=== PATIENT | male | born 1990 | race Caucasian/White ===

== ENCOUNTER 2019-05-07 11:35 | Inpatient (IN) | payer OTHER ==
--- NOTE | 2019-05-07 11:56 | PDOC ---
History of Present Illness <EverardoTrae - Last Filed: 05/07/19 16:46> - History of Present Illness Initial Comments: HPI: 28yo M with PMH of depression and asthma presenting sent by urgent care for evaluation of R. flank pain. Patient states the pain started this morning, describes it as "sharp," and rated 6-8/10. Patient has never had pain like this before. Took some gas-ex at home without relief of pain. Went to an urgent care and was given a shot of toradol. Pain is now improved, rated 1/10. Patient denies dysuria. Paperwork regarding a urine sample checked at the urgent care showed 2+ blood but no other abnormalities. Denies penile discharge or genital lesions. No fevers or chills. PCP: does not remember the name, someone affiliated with [facility] ROS: Constitutional: no fever, no chills HEENT: no throat pain, no dysphagia Cardiovascular: no chest pain, no palpitations Respiratory: no cough, no shortness of breath Gastrointestinal: no abdominal pain, no nausea Genitourinary: no dysuria, no hematuria Musculoskeletal: no myalgia, no arthralgia Skin: no rash, no itching Neurologic: no headache, no weakness Psych: no agitation, no anxiety PE: General: Awake, alert, and fully oriented, in no acute distress Head: No signs of trauma Eyes: EOMI, sclera anicteric ENT: Moist mucus membranes Neck: Normal ROM, supple Lungs: Lungs clear, Normal breath sounds Cardio: Regular rhythm, S1 and S2 present Abdomen: Soft, nontender. No guarding, no rebound, no masses. Mild CVA tenderness on right. No CVA tenderness on left. Extremities: Normal range of motion, Distal pulses present SKIN: Warm, Dry, normal turgor Neurologic: Cranial nerves II through XII grossly intact. Normal speech ED Course/MDM: DDX including but not limited to nephrolithiasis, UTI, pyelonephritis, MSK UA, UCx Patient declined pain medication Will reassess 05/07/19 11:56 UA with 1+ hematuria, no signs of infection Patient with 5/10 pain that has returned Trouble finding a comfortable position Suspicion for renal colic CT spiral ordered to assess for nephrolithiasis Labs 05/07/19 13:50 Patient with some nausea due to blood draw; patient not nauseous right now 05/07/19 14:21 CBC WBC 18.9 K/mm3 (4.0-10.8) H 05/07/19 14:10 RBC 5.67 M/mm3 (4.00-5.60) H 05/07/19 14:10 Hgb 16.9 GM/dl (11.7-16.9) 05/07/19 14:10 Hct 49.9 % (35.4-49) H 05/07/19 14:10 MCV 87.9 fl (80-96) 05/07/19 14:10 MCH 29.9 pg (25.7-33.7) 05/07/19 14:10 MCHC 34.0 g/dl (32.0-35.9) 05/07/19 14:10 RDW 11.9 % (11.9-15.9) 05/07/19 14:10 Plt Count 273 K/MM3 (134-434) 05/07/19 14:10 MPV 9.0 fl (7.5-11.1) 05/07/19 14:10 Absolute Neuts (auto) 14.8 K/mm3 05/07/19 14:10 Neutrophils % 78.6 % (42.8-82.8) 05/07/19 14:10 Lymphocytes % 16.0 % (8-40) 05/07/19 14:10 Monocytes % 4.7 % (3.8-10.2) 05/07/19 14:10 Eosinophils % 0.3 % (0-4.5) 05/07/19 14:10 Basophils % 0.4 % (0-2.0) 05/07/19 14:10 Leukocytosis CMP Sodium 136 mmol/L (136-145) 05/07/19 14:10 Potassium 3.8 mmol/L (3.5-5.1) 05/07/19 14:10 Chloride 104 mmol/L (98-107) 05/07/19 14:10 Carbon Dioxide 22 mmol/L (21-32) 05/07/19 14:10 Anion Gap 10 MMOL/L (8-16) 05/07/19 14:10 BUN 21.0 mg/dl (7-18) H 05/07/19 14:10 Creatinine 1.3 mg/dl (0.55-1.3) 05/07/19 14:10 Est GFR (CKD-EPI)AfAm 85.46 05/07/19 14:10 Est GFR (CKD-EPI)NonAf 73.73 05/07/19 14:10 Random Glucose 96 mg/dl (74-106) 05/07/19 14:10 Calcium 10.1 mg/dl (8.5-10) H 05/07/19 14:10 Total Bilirubin 1.4 mg/dl (0.2-1) H 05/07/19 14:10 AST 72 U/L (15-37) H 05/07/19 14:10 ALT 172 U/L (13-61) H 05/07/19 14:10 Alkaline Phosphatase 46 U/L (45-117) 05/07/19 14:10 Total Protein 7.7 g/dl (6.4-8.2) 05/07/19 14:10 Albumin 4.8 g/dl (3.4-5.0) 05/07/19 14:10 Electrolytes unremarkable Normal Cr Transaminitis present Pending CT report 05/07/19 15:49 CTAP: " EXAM#: TYPE/EXAM: RESULT: [id number] CT/SPIRAL- RENAL-STONE CT Right flank pain. CT scan of the abdomen pelvis without oral and intravenous contrast Coronal and sagittal reformatted images were obtained Comparison: None available The visualized lung base appears unremarkable and the heart is within normal limits in size. The liver is within normal limits in size with suggestion of mild decreased attenuation, rule out a fatty liver. The spleen is within normal limits in size and attenuation measuring 11.8 cm in AP dimension. Evaluation of the pancreas, gallbladder and both adrenal glands appear unremarkable. The left kidney is within normal limits in size with questionable punctate nonobstructing stone on axial image 56. Right kidney is within normal limits in size with mild stranding of the surrounding fat and a mild to moderate hydronephrosis. There is a stone at the right ureteropelvic junction measuring 8 x 7 x 9 mm in transverse, AP and craniocaudal dimension with a thickening of the surrounding ureteral wall and mild stranding. The rest of the right ureter is not dilated pain Partially distended urinary bladder without wall thickening. Moderately distended stomach without wall thickening. There is no evidence of small bowel obstruction. Normal-appearing terminal ileum and appendix. Normal stool burden the colon without wall thickening. Normal size prostate gland. Perirectal and pericecal fat are clear. No free air , free fluid or enlarged lymph nodes are identified Visualized osseous structures appear intact. IMPRESSION: 8 x 7 x 9 mm obstructing stone at the right ureteropelvic junction resulting in mild to moderate right renal hydronephrosis and stranding of the perinephric fat. Possible punctate nonobstructing left mid to lower renal stone. Questionable mild fatty infiltration of the liver. Please correlate with liver enzymes " 05/07/19 16:07 Dr. Mcgee discussed case with Dr. Valentino, urologist. Given possibility of urologic procedure tonight, patient to be transferred to [facility] Stone removal procedure needed requiring inpatient admission Dr. Mcgee discussed case with [employer] Carole Weir who accepted patient for admission under Dr. De La Cruz 05/07/19 18:10 <Aniya Romero - Last Filed: 05/07/19 20:43> - General Chief Complaint: Pain Stated Complaint: RIGHT WILBERTO AND LOWER ABDOMINAL PAIN WAS SEEN Time Seen by Provider: 05/07/19 11:55 Past History <Trae Mcgee - Last Filed: 05/07/19 16:46> <Aniya Romero - Last Filed: 05/07/19 20:43> - Past Medical History Allergies/Adverse Reactions: Allergies Allergy/AdvReac Type Severity Reaction Status Date / Time No Known Allergies Allergy Unverified 05/07/19 11:51 Home Medications: Ambulatory Orders Fluoxetine HCl [Prozac] 40 mg PO DAILY 05/07/19 *Physical Exam - Vital Signs Last Vital Signs Temp Pulse Resp BP Pulse Ox 99.6 F 73 18 144/86 99 05/07/19 11:50 05/07/19 11:50 05/07/19 11:50 05/07/19 11:50 05/07/19 11:50 <Trae Mcgee - Last Filed: 05/07/19 16:46> ED Treatment Course - LABORATORY CBC & Chemistry Diagram: 05/07/19 14:10 05/07/19 14:10 - ADDITIONAL ORDERS Additional order review: Laboratory Results 05/07/19 05/07/19 14:10 12:05 Sodium 136 Potassium 3.8 Chloride 104 Carbon Dioxide 22 Anion Gap 10 BUN 21.0 H Creatinine 1.3 Est GFR (CKD-EPI)AfAm 85.46 Est GFR (CKD-EPI)NonAf 73.73 Random Glucose 96 Calcium 10.1 H Total Bilirubin 1.4 H AST 72 H ALT 172 H Alkaline Phosphatase 46 Total Protein 7.7 Albumin 4.8 Urine Color Yellow Urine Appearance Clear Urine pH 7.0 Urine Protein Trace Urine Glucose (UA) Negative Urine Ketones Trace Urine Blood 1+ H Urine Nitrite Negative Urine Bilirubin Negative Urine Urobilinogen 0.2 Ur Leukocyte Esterase Negative Urine RBC 5-10 Urine WBC 0-2 Ur Transition Epith Cell Rare Calcium Oxalate Crystal Few Urine Bacteria Few 05/07/19 14:10 RBC 5.67 H MCV 87.9 MCHC 34.0 RDW 11.9 MPV 9.0 Neutrophils % 78.6 Lymphocytes % 16.0 Monocytes % 4.7 Eosinophils % 0.3 Basophils % 0.4 - Medications Given in the ED: ED Medications Discontinued Medications Generic Name Dose Route Start Last Admin Trade Name Yao PRN Reason Stop Dose Admin Sodium Chloride 1,000 mls @ 1,000 mls/hr 05/07/19 13:49 05/07/19 14:20 Normal Saline - IV 05/07/19 14:48 1,000 mls/hr ASDIR STA Administration Tamsulosin HCl 0.4 mg 05/07/19 13:49 05/07/19 14:20 Flomax - PO 05/07/19 13:50 0.4 mg ONCE ONE Administration <Trae Mcgee - Last Filed: 05/07/19 16:46> - LABORATORY CBC & Chemistry Diagram: 05/07/19 14:10 05/07/19 14:10 <Aniya Romero - Last Filed: 05/07/19 20:43> Discharge - Discharge Information Problems reviewed: Yes - Admission Yes <Trae Mcgee - Last Filed: 05/07/19 16:46> - Discharge Information Problems reviewed: Yes - Admission Yes <Aniya Romero - Last Filed: 05/07/19 20:43> - Discharge Information Clinical Impression/Diagnosis: Hydronephrosis with renal calculous obstruction Condition: Guarded - Patient Discharge Instructions Patient Printed Discharge Instructions: DI for Flank Pain Additional Instructions: You came into the emergency department with flank pain. Eat and hydrate throughout the day to prevent dehydration and low blood sugar levels. Follow-up with your primary care provider within 72 hours to discuss this ED visit and to further evaluate your symptoms. Call and make an appointment tomorrow morning. Your workup is not complete until you do so. Immediate medical attention is required if you have: you become lightheaded, develop chest pain or shortness of breath, are unable to urinate, start passing dark red urine or clots, develop any fevers or chills, or any other new or concerning symptoms. If you think you are having an emergency, call for emergency medical services or present to the emergency department right away.
[2019-05-07 13:29] LABS: CALCIUM OXALATE CRYSTALS FEW /hpf (NONE SEEN); EPITHELIAL CELLS RARE /hpf
[2019-05-07] MEDS ORDERED: TAMSULOSIN HCL 0.4 MG CAP PO ONE (13:49)
[2019-05-07] MEDS ORDERED: SODIUM CHLORIDE 1,000 ML IV STA ×2 (13:49→19:04)
[2019-05-07] MEDS ORDERED: ONDANSETRON *ODT* 4 MG TABLET ONE (14:17)
[2019-05-07] MEDS ORDERED: ONDANSETRON 4 MG/2 ML VIAL ONE (14:18)
[2019-05-07 14:34] LABS: BASO % 0.4 % (0-2.0); EOS % 0.3 % (0-4.5)
[2019-05-07 14:42] LABS: ALBUMIN 4.8 g/dl (3.4-5.0); BILIRUBIN,TOTAL 1.4 mg/dl (0.2-1); CALCIUM 10.1 mg/dl (8.5-10); CREATININE 1.3 mg/dl (0.55-1.3); POTASSIUM 3.8 mmol/L (3.5-5.1); TOT PROT 7.7 g/dl (6.4-8.2)
[2019-05-07 14:49] LABS: HEMATOCRIT 49.9 % (35.4-49); HEMOGLOBIN 16.9 GM/dl (11.7-16.9); MCH 29.9 pg (25.7-33.7); MEAN CELL VOLUME 87.9 fl (80-96); MONO % 4.7 % (3.8-10.2); NEUT % 78.6 % (42.8-82.8); PLATELET COUNT 273 K/MM3 (134-434); RBC 5.67 M/mm3 (4.00-5.60); RDW 11.9 % (11.9-15.9); WHITE BLOOD COUNT 18.9 K/mm3 (4.0-10.8)
--- NOTE | 2019-05-07 16:16 | PDOC ---
Attending Attestation - Resident Resident Name: Aniya Romero - ED Attending Attestation I have performed the following: I have examined & evaluated the patient, The case was reviewed & discussed with the resident, I agree w/resident's findings & plan, Exceptions are as noted - HPI HPI: 05/07/19 16:17 Right flank pain since this morning. Pain radiates to the right mid abdomen. No urinary symptoms. Mild nausea, no vomiting or diarrhea, no fever or chills. - Physicial Exam PE: 05/07/19 16:18 Physical exam: Afebrile, vital signs normal No pallor or icterus. ENT clear Neck supple without bruit mass or nodes Chest clear CV regular without murmur rub or gallop Abdomen nondistended. Bowel sounds normal. Soft without mass tenderness organomegaly. Mild CVAT on the right. Neurological intact Skin clear, no rash, adequate turgor and wet mucous membranes exam normal 05/07/19 16:19 Urinalysis shows blood, no white cells, nitrite, or leukocyte esterase - Medical Decision Making 05/07/19 16:19 Assessment: Probable proximal ureteral stone. Other possibilities musculoskeletal pain, gastroenteritis, cholecystitis or hepatitis, peptic ulcer disease Plan: CT and further medical management depending on results. 05/07/19 16:20 CT reveals a large 9 mm obstructing stone in the proximal ureter, with hydronephrosis and hydroureter, as well as a more distal nonobstructing stone. White blood count is 18.9, suspicious for infection Considerable risk for sepsis, admit for intravenous antibiotic and surgical consultation. Spoke to Dr. Valentino, urology consultation. He considers semi-emergent stent to be necessary. We will perform blood cultures, begin intravenous antibiotics , and transfer the patient to [facility] for semi-emergent intervention.
--- NOTE | 2019-05-07 17:18 | HP ---
CHIEF COMPLAINT: Right flank pain PCP: Can't remember; someone at [facility] HISTORY OF PRESENT ILLNESS: 28 year-old male with a PMH significant for asthma and depression. Patient reports right flank pain which awoke him from sleep at 5am this morning. The pain is sharp, 6-8/10. He went to an urgent care and was given a shot of toradol. Pain is now improved, rated 1/10. Patient denies fever, sweats, chills , nausea, vomiting, diarrhea. Had a normal BM today. ER course was notable for: (1) WBC 18.9k, T 101 rectal (2) Hematuria 5-10 RBCs (3) CTAP: [id number] obstructing stone right UPJ-->mild to moderate right renal hydronephrosis and stranding of perinephric fat Recent Travel: No PAST MEDICAL HISTORY: Asthma Depression PAST SURGICAL HISTORY: Left knee meniscus repair Social History: works at [employer]; lives in [place] with parents, single Smoking: occasionally Alcohol: no Drugs: marijuna occasionally Allergies No Known Allergies Allergy (Unverified 05/07/19 11:51) HOME MEDICATIONS: Home Medications Medication Instructions Recorded Fluoxetine HCl [Prozac] 40 mg PO DAILY 05/07/19 REVIEW OF SYSTEMS CONSTITUTIONAL: Absent: fever, chills, diaphoresis, generalized weakness, malaise, loss of appetite, weight change HEENT: Absent: rhinorrhea, nasal congestion, throat pain, throat swelling, difficulty swallowing, mouth swelling, ear pain, eye pain, visual changes CARDIOVASCULAR: Absent: chest pain, syncope, palpitations, irregular heart rate, lightheadedness , peripheral edema RESPIRATORY: Absent: cough, shortness of breath, dyspnea with exertion, orthopnea, wheezing, stridor, hemoptysis GASTROINTESTINAL: Absent: abdominal pain, abdominal distension, nausea, vomiting, diarrhea, constipation, melena, hematochezia GENITOURINARY: +right flank pain Absent: dysuria, frequency, urgency, hesitancy, hematuria, flank pain, genital pain MUSCULOSKELETAL: Absent: myalgia, arthralgia, joint swelling, back pain, neck pain SKIN: Absent: rash, itching, pallor HEMATOLOGIC/IMMUNOLOGIC: Absent: easy bleeding, easy bruising, lymphadenopathy, frequent infections ENDOCRINE: Absent: unexplained weight gain, unexplained weight loss, heat intolerance, cold intolerance NEUROLOGIC: Absent: headache, focal weakness or paresthesias, dizziness, unsteady gait, seizure, mental status changes, bladder or bowel incontinence PSYCHIATRIC: Absent: anxiety, depression, suicidal or homicidal ideation, hallucinations. PHYSICAL EXAMINATION Vital Signs - 24 hr 05/07/19 11:50 Temperature 99.6 F Pulse Rate 73 Respiratory 18 Rate Blood Pressure 144/86 O2 Sat by Pulse 99 Oximetry (%) GENERAL: Awake, alert, and fully oriented, in no acute distress. Pale. HEAD: Normal with no signs of trauma. EYES: Pupils equal, round and reactive to light, extraocular movements intact, sclera anicteric, conjunctiva clear. EARS, NOSE, THROAT: Ears normal, nares patent, oropharynx clear without exudates. Dry mucous membranes. NECK: Normal range of motion, supple without lymphadenopathy, JVD, or masses. LUNGS: Breath sounds equal, clear to auscultation bilaterally. No wheezes, and no crackles. No accessory muscle use. HEART: Regular rate and rhythm, normal S1 and S2 without murmur, rub or gallop. ABDOMEN: Soft, protubrant, right flank tenderness on deep palpation MUSCULOSKELETAL: Normal range of motion at all joints. No bony deformities or tenderness. UPPER EXTREMITIES: 2+ pulses, warm, well-perfused. No cyanosis. No clubbing. No peripheral edema.Mild right CVA tenderness. LOWER EXTREMITIES: 2+ pulses, warm, well-perfused. No calf tenderness. No peripheral edema. NEUROLOGICAL: Cranial nerves II-XII intact. Normal speech. . SKIN: Warm, dry, normal turgor Laboratory Results - last 24 hr 05/07/19 05/07/19 05/07/19 12:05 14:10 14:10 WBC 18.9 H RBC 5.67 H Hgb 16.9 Hct 49.9 H MCV 87.9 MCH 29.9 MCHC 34.0 RDW 11.9 Plt Count 273 MPV 9.0 Absolute Neuts (auto) 14.8 Neutrophils % 78.6 Lymphocytes % 16.0 Monocytes % 4.7 Eosinophils % 0.3 Basophils % 0.4 Sodium 136 Potassium 3.8 Chloride 104 Carbon Dioxide 22 Anion Gap 10 BUN 21.0 H Creatinine 1.3 Est GFR (CKD-EPI)AfAm 85.46 Est GFR (CKD-EPI)NonAf 73.73 Random Glucose 96 Calcium 10.1 H Total Bilirubin 1.4 H AST 72 H ALT 172 H Alkaline Phosphatase 46 Total Protein 7.7 Albumin 4.8 Urine Color Yellow Urine Appearance Clear Urine pH 7.0 Urine Protein Trace Urine Glucose (UA) Negative Urine Ketones Trace Urine Blood 1+ H Urine Nitrite Negative Urine Bilirubin Negative Urine Urobilinogen 0.2 Ur Leukocyte Esterase Negative Urine RBC 5-10 Urine WBC 0-2 Ur Transition Epith Cell Rare Calcium Oxalate Crystal Few Urine Bacteria Few ASSESSMENT/PLAN: 28 year-old male with a PMH significant for asthma and depression. Admitted for a right ureteral obstructing stone and hydronephrosis. Sepsis secondary to right ureteral obstructing stone Right-side hydronephrosis --WBC 18.9k, T 101 rectal, lactic acid pending --CT: [id number] obstructing stone right UPJ-->mild to moderate right renal hydronephrosis and stranding of perinephric fat --Cr 1.3 on admission, monitor renal function closely --discussed with Dr. Teresa, transfer to [facility], may need procedure tonight --NS x 1L in ED; give another 1L now, then hourly Depression --continue Prozac Asthma --stable, not on regular meds FEN Fluids: LR@125mL/hr Electrolytes: replete as indicated Nutrition: NPO DVT prophylaxis: SCDs Dispo: Dr. Westfall's answering service advised 7:20pm patient septic, WBC 19k, fever 101; has room 824B at [facility], awaiting transport. Visit type - Emergency Visit Emergency Visit: Yes Care time: The patient presented to the Emergency Department on the above date and was hospitalized for further evaluation of their emergent condition. - New Patient This patient is new to me today: Yes Date on this admission: 05/07/19 - Critical Care Critical Care patient: Yes Total Critical Care Time (in minutes): 45 Critical Care Statement: The care of this patient involved high complexity decision making to prevent further life threatening deterioration of the patient 's condition and/or to evaluate & treat vital organ system(s) failure or risk of failure.
[2019-05-07] MEDS ORDERED: CEFTRIAXONE 1,000 MG in DEXTROSE 5%-WATER - 50 ML IVPB ONE (17:25)
[2019-05-07] MEDS ORDERED: cefTRIAXone SODIUM 1 GM VIAL ONE (17:31)
[2019-05-07] MEDS: LACTATED RINGERS SOLUTION 1,000 ML/1,000 ML INFUS.BAG IV SCH (18:15)
[2019-05-07] MEDS ORDERED: PIPERACILLIN/TAZOBACTAM 3.375 GM VIAL IVPB ONE (19:11)
[2019-05-07] MEDS ORDERED: PIPERACILLIN/TAZOB 3.375 GM 3.375 GM in DEXTROSE 5%-WATER - 50 ML IVPB SCH (19:15)
[2019-05-07] MEDS: PIPERACILLIN/TAZOB 3.375 GM 3.375 GM in DEXTROSE 5%-WATER - 50 ML IVPB SCH (19:25)
[2019-05-07] MEDS ORDERED: ACETAMINOPHEN INJECTION 100 ML IVPB ONE (19:32)
[2019-05-07] MEDS: ACETAMINOPHEN 1000 MG/100 ML VIAL (NON FORMULARY) IVPB SCH (19:50)
[2019-05-07] MEDS: KETOROLAC TROMETHAMINE 15 MG/ML VIAL IVPUSH PRN (23:01)
[2019-05-08 00:17] VITALS: BMI 31.4
[2019-05-08] MEDS ORDERED: PIPERACILLIN/TAZOBACTAM 3.375 GM VIAL IVPB ONE ×2 (01:27→09:50)
[2019-05-08] MEDS ORDERED: DEXTROSE 5%-WATER - 50 ML IVPB ONE ×2 (01:28→09:51)
[2019-05-08] MEDS: PIPERACILLIN/TAZOB 3.375 GM 3.375 GM in DEXTROSE 5%-WATER - 50 ML IVPB SCH ×2 (01:40→10:01)
[2019-05-08] MEDS: ACETAMINOPHEN 1000 MG/100 ML VIAL (NON FORMULARY) IVPB SCH ×3 (01:40→14:46)
[2019-05-08 08:51] LABS: BASO % 0.5 % (0-2.0); EOS % 1.1 % (0-4.5); HEMATOCRIT 40.4 % (35.4-49); HEMOGLOBIN 14.2 GM/dL (11.7-16.9); LYMPH % 26.4 % (8-40); MCH 30.1 pg (25.7-33.7); MCHC 35.1 g/dl (32.0-35.9); MEAN CELL VOLUME 85.8 fl (80-96); MEAN PLT VOLUME 8.2 fl (7.5-11.1); MONO % 7.8 % (3.8-10.2); NEUT % 64.2 % (42.8-82.8); PLATELET COUNT 201 K/MM3 (134-434); RDW 12.9 % (11.9-15.9); WHITE BLOOD COUNT 8.1 K/mm3 (4.0-10.0)
[2019-05-08 09:28] LABS: ALBUMIN 3.7 g/dl (3.4-5.0); BLOOD UREA NITROGEN 14.3 mg/dL (7-18); CALCIUM 8.5 mg/dL (8.5-10.1); CREATININE 1.1 mg/dL (0.55-1.3); MAGNESIUM 1.9 mg/dL (1.8-2.4); POTASSIUM 3.4 mmol/L (3.5-5.1); TOT PROT 6.4 g/dl (6.4-8.2)
[2019-05-08 09:30] LABS: INR 1.14 (0.83-1.09); PROTHROMBIN TIME (PATIENT) 13.5 SEC (9.7-13.0)
[2019-05-08] MEDS: KETOROLAC TROMETHAMINE 15 MG/ML VIAL IVPUSH PRN ×2 (10:01→18:57)
[2019-05-08] MEDS: LACTATED RINGERS SOLUTION 1,000 ML/1,000 ML INFUS.BAG IV SCH ×2 (10:02→18:57)
[2019-05-08] MEDS: FLUoxetine HCL 20 MG CAPSULE PO SCH (10:05)
--- NOTE | 2019-05-08 11:13 | PN ---
Physical Exam: SUBJECTIVE: Patient seen and examined compfrtable in bed , denies any fever , chills , hematuria , or chest pain , no N/V reported OBJECTIVE: Vital Signs Period Temp Pulse Resp BP Sys/Richards Pulse Ox Last 24 Hr 98.1 F-101.3 F 73-106 16-20 124-150/67-108 96-199 GENERAL: AAOx3 in NAD , pale HEAD: NC/AT EYES: EOMI, Conjunctiva clear, sclera anicteric ENT: moist mucous membrane NECK: Supple, no JVD LUNGS: CTA B/L, no crackles no wheezing no accessory muscle use. HEART: RRR, NSR, normal s1, s2, murmur no M/R/G ABDOMEN: Soft, ND, NT, +BS 4 Q, right CVA Tenderness LOWER EXTREMITIES: no edema, +2DP pulse, NEUROLOGICAL: No focal deficit. Normal speech. gait not observed. PSYCHIATRIC: Cooperative. Good eye contact. Appropriate mood and affect. SKIN: Warm, dry, Laboratory Results - last 24 hr 05/07/19 05/07/19 05/07/19 12:05 14:10 14:10 WBC 18.9 H RBC 5.67 H Hgb 16.9 Hct 49.9 H MCV 87.9 MCH 29.9 MCHC 34.0 RDW 11.9 Plt Count 273 MPV 9.0 Absolute Neuts (auto) 14.8 Neutrophils % 78.6 Lymphocytes % 16.0 Monocytes % 4.7 Eosinophils % 0.3 Basophils % 0.4 Nucleated RBC % PT with INR INR PTT (Actin FS) Sodium 136 Potassium 3.8 Chloride 104 Carbon Dioxide 22 Anion Gap 10 BUN 21.0 H Creatinine 1.3 Est GFR (CKD-EPI)AfAm 85.46 Est GFR (CKD-EPI)NonAf 73.73 Random Glucose 96 Lactic Acid Calcium 10.1 H Phosphorus Magnesium Total Bilirubin 1.4 H AST 72 H ALT 172 H Alkaline Phosphatase 46 Total Protein 7.7 Albumin 4.8 Urine Color Yellow Urine Appearance Clear Urine pH 7.0 Urine Protein Trace Urine Glucose (UA) Negative Urine Ketones Trace Urine Blood 1+ H Urine Nitrite Negative Urine Bilirubin Negative Urine Urobilinogen 0.2 Ur Leukocyte Esterase Negative Urine RBC 5-10 Urine WBC 0-2 Ur Transition Epith Cell Rare Calcium Oxalate Crystal Few Urine Bacteria Few 05/07/19 05/08/19 05/08/19 17:00 06:00 07:30 WBC 8.1 RBC 4.70 Hgb 14.2 Hct 40.4 MCV 85.8 MCH 30.1 MCHC 35.1 RDW 12.9 Plt Count 201 MPV 8.2 Absolute Neuts (auto) 5.2 Neutrophils % 64.2 Lymphocytes % 26.4 Monocytes % 7.8 Eosinophils % 1.1 Basophils % 0.5 Nucleated RBC % 0 PT with INR INR PTT (Actin FS) Sodium 139 Potassium 3.4 L Chloride 108 H Carbon Dioxide 24 Anion Gap 8 BUN 14.3 Creatinine 1.1 Est GFR (CKD-EPI)AfAm 104.59 Est GFR (CKD-EPI)NonAf 90.24 Random Glucose 102 Lactic Acid 1.2 Calcium 8.5 Phosphorus 3.0 Magnesium 1.9 Total Bilirubin 2.0 H AST 34 ALT 131 H Alkaline Phosphatase 47 Total Protein 6.4 Albumin 3.7 Urine Color Urine Appearance Urine pH Urine Protein Urine Glucose (UA) Urine Ketones Urine Blood Urine Nitrite Urine Bilirubin Urine Urobilinogen Ur Leukocyte Esterase Urine RBC Urine WBC Ur Transition Epith Cell Calcium Oxalate Crystal Urine Bacteria 05/08/19 07:30 WBC RBC Hgb Hct MCV MCH MCHC RDW Plt Count MPV Absolute Neuts (auto) Neutrophils % Lymphocytes % Monocytes % Eosinophils % Basophils % Nucleated RBC % PT with INR 13.50 H INR 1.14 H PTT (Actin FS) 32.0 Sodium Potassium Chloride Carbon Dioxide Anion Gap BUN Creatinine Est GFR (CKD-EPI)AfAm Est GFR (CKD-EPI)NonAf Random Glucose Lactic Acid Calcium Phosphorus Magnesium Total Bilirubin AST ALT Alkaline Phosphatase Total Protein Albumin Urine Color Urine Appearance Urine pH Urine Protein Urine Glucose (UA) Urine Ketones Urine Blood Urine Nitrite Urine Bilirubin Urine Urobilinogen Ur Leukocyte Esterase Urine RBC Urine WBC Ur Transition Epith Cell Calcium Oxalate Crystal Urine Bacteria Active Medications Generic Name Dose Route Start Last Admin Trade Name Freq PRN Reason Stop Dose Admin Acetaminophen 1,000 mg 05/07/19 19:30 05/08/19 07:54 Ofirmev Injection - IVPB 05/08/19 13:31 1,000 mg Q6H UMU Administration Fluoxetine HCl 40 mg 05/08/19 10:00 05/08/19 10:05 Prozac - PO 40 mg DAILY UMU Administration Lactated Ringer's 1,000 ml in 1,000 mls @ 125 mls/hr 05/07/19 18:00 05/08/19 10:02 Lactated Ringers Solution IV 125 mls/hr ASDIR UMU Administration Piperacillin Sod/Tazobactam 50 mls @ 100 mls/hr 05/07/19 19:15 Sod 3.375 gm/ Dextrose IVPB Q8H-IV UMU Protocol Ketorolac Tromethamine 15 mg 05/07/19 17:30 05/08/19 10:01 Toradol Injection - IVPUSH 05/12/19 17:29 15 mg Q6H PRN Administration PAIN LEVEL 6-10 CBC, BMP 05/08/19 07:30 05/08/19 06:00 ASSESSMENT/PLAN: 28 year-old male with a PMH significant for asthma and depression. Admitted for a right ureteral obstructing stone and hydronephrosis. #Sepsis secondary to right ureteral obstructing stone #Right-side hydronephrosis * WBC 18.9k, T 101 rectal, lactic acid pending * CT: [id number] obstructing stone right UPJ-->mild to moderate right renal hydronephrosis and stranding of perinephric fat * Cr 1.3 on admission, monitor renal function closely * Dr. Teresa, cont current management * IV fluids , pain conrl and abx * iD consulted * follow up cx and adjust abx accordingly #Depression * continue Prozac #Asthma, stable, not on regular meds #FEN * Fluids: LR@125mL/hr * Electrolytes: replete as indicated * Nutrition: regular diet as no orocedure for now #DVT prophylaxis: SCDs Visit type - Emergency Visit Emergency Visit: Yes ED Registration Date: 05/07/19 Care time: The patient presented to the Emergency Department on the above date and was hospitalized for further evaluation of their emergent condition. - New Patient This patient is new to me today: Yes Date on this admission: 05/08/19 - Critical Care Critical Care patient: No - Discharge Referral Referred to [facility] Med P.C.: No ATTENDING PHYSICIAN STATEMENT I saw and evaluated the patient. I reviewed the resident's note and discussed the case with the resident. I agree with the resident's findings and plan as documented. SUBJECTIVE: OBJECTIVE: ASSESSMENT AND PLAN:
--- NOTE | 2019-05-08 11:36 | CON.GU ---
Consult - History of Present Illness History of Present Illness: 28 yo male with rt sided colic secondary to obstructing 9mm RUPJ stone, fevre, elev WBC. Underwent emergent Rt NT placement last night. Currently feeling better - Alcohol/Substance Use Hx Alcohol Use: No - Smoking History Smoking history: Current some day smoker Aproximately how many cigarettes per day: 1 Home Medications - Allergies Allergies/Adverse Reactions: Allergies Allergy/AdvReac Type Severity Reaction Status Date / Time No Known Allergies Allergy Unverified 05/07/19 11:51 - Home Medications Home Medications: Ambulatory Orders Fluoxetine HCl [Prozac] 40 mg PO DAILY 05/07/19 Physical Exam- Vital Signs: Vital Signs Temperature 98.6 F 05/08/19 09:01 Pulse Rate 91 H 05/08/19 09:01 Respiratory Rate 18 05/08/19 09:01 Blood Pressure 143/81 05/08/19 09:01 O2 Sat by Pulse Oximetry (%) 96 05/08/19 00:06 Kidneys: Yes: FLank Pain Right Labs: CBC, BMP 05/08/19 07:30 05/08/19 06:00 Imaging - Results Cat Scan: Report Reviewed Problem List - Problems (1) Hydronephrosis with renal calculous obstruction Assessment/Plan: cont IV abx while awaiting cultures cont rt NT Code(s): N13.2 - HYDRONEPHROSIS WITH RENAL AND URETERAL CALCULOUS OBSTRUCTION
[2019-05-08] MEDS ORDERED: PIPERACILLIN/TAZOB 3.375 GM 3.375 GM in DEXTROSE 5%-WATER - 50 ML IVPB SCH (12:30)
--- NOTE | 2019-05-08 12:33 | CON.ID ---
Consult Consult Specialty:: infectious diseases Referred by:: peg Reason for Consultation:: ureteric obstruction,uti,abd pain rt flank - History of Present Illness Chief Complaint: rt flank pain History of Present Illness: 28 year-old male with a PMH significant for asthma and depression.with right flank pain which awoke him from sleep at morning. The pain is sharp, 6-8/10. He went to an urgent care and was given a shot of toradol. Pain is now improved , rated 1/10. Patient denies fever, sweats, chills, nausea, vomiting, diarrhea. Had a normal BM today. patient was worked up and found to have rt sided obstructing ureteric stone.Patient was seen by urologist and was taken to the operating room and a rt sided nephrostomy tube was placed patient started on abx and currently feels better - Alcohol/Substance Use Hx Alcohol Use: No - Smoking History Smoking history: Current some day smoker Aproximately how many cigarettes per day: 1 Home Medications - Allergies Allergies/Adverse Reactions: Allergies Allergy/AdvReac Type Severity Reaction Status Date / Time No Known Allergies Allergy Unverified 05/07/19 11:51 - Home Medications Home Medications: Ambulatory Orders Fluoxetine HCl [Prozac] 40 mg PO DAILY 05/07/19 Review of Systems - Review of Systems Constitutional: reports: No Symptoms Eyes: reports: No Symptoms HENT: reports: No Symptoms Neck: reports: No Symptoms Cardiovascular: reports: No Symptoms Respiratory: reports: No Symptoms Gastrointestinal: reports: No Symptoms Genitourinary: reports: Flank Pain (rt side) Integumentary: reports: No Symptoms Neurological: reports: No Symptoms Endocrine: reports: No Symptoms Hematology/Lymphatic: reports: No Symptoms Psychiatric: reports: No Symptoms Physical Exam Vital Signs: Vital Signs Temperature 98.6 F 05/08/19 09:01 Pulse Rate 91 H 05/08/19 09:01 Respiratory Rate 18 05/08/19 09:01 Blood Pressure 143/81 05/08/19 09:01 O2 Sat by Pulse Oximetry (%) 96 05/08/19 00:06 Constitutional: Yes: Well Nourished, No Distress, Calm Eyes: Yes: Conjunctiva Clear HENT: Yes: Atraumatic, Normocephalic Neck: Yes: Supple, Trachea Midline Cardiovascular: Yes: Regular Rate and Rhythm Respiratory: Yes: Regular, CTA Bilaterally Gastrointestinal: Yes: Normal Bowel Sounds, Soft Renal/: Yes: Other (rt nephrostomy tube) Musculoskeletal: Yes: WNL Extremities: Yes: WNL Neurological: Yes: Alert, Oriented Psychiatric: Yes: Alert, Oriented Labs: CBC, BMP 05/08/19 07:30 05/08/19 06:00 Imaging - Results Cat Scan: Report Reviewed, Image Reviewed Assessment/Plan 28 year-old male with a PMH significant for asthma and depression. Admitted for a right ureteral obstructing stone and hydronephrosis. Sepsis right ureteral obstructing stone Right-side hydronephrosis Depression Asthma leukocytosis plan await for all cx report will start patient on abx hydration rest as per the team and urology
--- NOTE | 2019-05-08 18:45 | PN ---
Teaching Attending Note Name of Resident: Moe Pina ATTENDING PHYSICIAN STATEMENT I saw and evaluated the patient. I reviewed the resident's note and discussed the case with the resident. I agree with the resident's findings and plan as documented. SUBJECTIVE: Patient seen and examined at bedside, s/p R nephrostomy drain, feels better, no fevers, NAD. VSS. Objective: GENERAL: AAOx3 in NAD, comfortable, sitting up in bed, family at bedside HEAD: NC/AT EYES: EOMI, Conjunctiva clear, sclera anicteric ENT: moist mucous membrane NECK: Supple, no JVD LUNGS: CTA B/L, no crackles no wheezing no accessory muscle use. HEART: RRR, NSR, normal s1, s2, murmur no M/R/G ABDOMEN: Soft, ND, NT, +BS 4 Q, slight right CVA Tenderness LOWER EXTREMITIES: no edema, +2DP pulse, NEUROLOGICAL: No focal deficit. Normal speech. gait not observed. PSYCHIATRIC: Cooperative. Good eye contact. Appropriate mood and affect. SKIN: Warm, dry. : R nephrostomy bag draining clear-yellow urine, no blood Vital Signs - 24 hr 05/07/19 05/07/19 05/07/19 19:18 22:00 22:05 Temperature 101.3 F H 99.2 F Pulse Rate 89 100 H Pulse Rate [ 102 H Left Upper Arm] Respiratory 16 20 Rate Respiratory 18 Rate [Left Upper Arm] Blood Pressure 124/68 140/78 Blood Pressure 135/76 [Left Upper Arm ] O2 Sat by Pulse 98 100 Oximetry (%) O2 Sat by Pulse 100 Oximetry (%) [ Left Upper Arm] 05/07/19 05/07/19 05/07/19 22:06 22:09 22:12 Temperature Pulse Rate Pulse Rate [ 88 101 H 106 H Left Upper Arm] Respiratory Rate Respiratory 18 18 18 Rate [Left Upper Arm] Blood Pressure Blood Pressure 150/100 132/105 H 134/108 H [Left Upper Arm ] O2 Sat by Pulse Oximetry (%) O2 Sat by Pulse 100 100 100 Oximetry (%) [ Left Upper Arm] 05/07/19 05/07/19 05/07/19 22:15 22:18 22:21 Temperature Pulse Rate Pulse Rate [ 94 H 98 H 90 Left Upper Arm] Respiratory Rate Respiratory 18 18 18 Rate [Left Upper Arm] Blood Pressure Blood Pressure 134/95 138/97 146/85 [Left Upper Arm ] O2 Sat by Pulse Oximetry (%) O2 Sat by Pulse 100 100 100 Oximetry (%) [ Left Upper Arm] 05/07/19 05/07/19 05/07/19 22:24 22:27 22:30 Temperature Pulse Rate Pulse Rate [ 96 H 86 90 Left Upper Arm] Respiratory Rate Respiratory 18 18 18 Rate [Left Upper Arm] Blood Pressure Blood Pressure 146/77 145/88 147/80 [Left Upper Arm ] O2 Sat by Pulse Oximetry (%) O2 Sat by Pulse 100 100 100 Oximetry (%) [ Left Upper Arm] 05/07/19 05/07/19 05/07/19 22:33 22:36 22:40 Temperature 99 F Pulse Rate 92 H 92 H Pulse Rate [ 91 H Left Upper Arm] Respiratory 18 Rate Respiratory 18 Rate [Left Upper Arm] Blood Pressure 148/90 Blood Pressure 147/92 [Left Upper Arm ] O2 Sat by Pulse 100 100 Oximetry (%) O2 Sat by Pulse 100 Oximetry (%) [ Left Upper Arm] 05/08/19 05/08/19 05/08/19 00:06 00:11 02:00 Temperature 98.4 F 98.6 F Pulse Rate 84 82 Pulse Rate [ Left Upper Arm] Respiratory 20 20 Rate Respiratory Rate [Left Upper Arm] Blood Pressure 134/68 132/67 Blood Pressure [Left Upper Arm ] O2 Sat by Pulse 96 Oximetry (%) O2 Sat by Pulse Oximetry (%) [ Left Upper Arm] 05/08/19 05/08/19 05/08/19 06:00 09:00 09:01 Temperature 98.1 F 98.6 F Pulse Rate 80 91 H Pulse Rate [ Left Upper Arm] Respiratory 20 18 Rate Respiratory Rate [Left Upper Arm] Blood Pressure 128/71 143/81 Blood Pressure [Left Upper Arm ] O2 Sat by Pulse 96 Oximetry (%) O2 Sat by Pulse Oximetry (%) [ Left Upper Arm] 05/08/19 05/08/19 14:46 16:20 Temperature 98.1 F 99.4 F Pulse Rate 95 H 74 Pulse Rate [ Left Upper Arm] Respiratory 20 20 Rate Respiratory Rate [Left Upper Arm] Blood Pressure 138/71 145/84 Blood Pressure [Left Upper Arm ] O2 Sat by Pulse Oximetry (%) O2 Sat by Pulse Oximetry (%) [ Left Upper Arm] Microbiology 05/07/19 17:22 Blood - Peripheral Venous Blood Culture - Preliminary NO GROWTH OBTAINED AFTER 24 HOURS, INCUBATION TO CONTINUE FOR 4 DAYS. 05/07/19 17:00 Blood - Peripheral Venous Blood Culture - Preliminary NO GROWTH OBTAINED AFTER 24 HOURS, INCUBATION TO CONTINUE FOR 4 DAYS. 05/07/19 12:05 Urine - Urine Clean Catch Urine Culture - Final NO GROWTH OBTAINED Laboratory Results - last 24 hr 05/07/19 05/08/19 05/08/19 17:00 06:00 07:30 WBC 8.1 RBC 4.70 Hgb 14.2 Hct 40.4 MCV 85.8 MCH 30.1 MCHC 35.1 RDW 12.9 Plt Count 201 MPV 8.2 Absolute Neuts (auto) 5.2 Neutrophils % 64.2 Lymphocytes % 26.4 Monocytes % 7.8 Eosinophils % 1.1 Basophils % 0.5 Nucleated RBC % 0 PT with INR INR PTT (Actin FS) Sodium 139 Potassium 3.4 L Chloride 108 H Carbon Dioxide 24 Anion Gap 8 BUN 14.3 Creatinine 1.1 Est GFR (CKD-EPI)AfAm 104.59 Est GFR (CKD-EPI)NonAf 90.24 Random Glucose 102 Lactic Acid 1.2 Calcium 8.5 Phosphorus 3.0 Magnesium 1.9 Total Bilirubin 2.0 H AST 34 ALT 131 H Alkaline Phosphatase 47 Total Protein 6.4 Albumin 3.7 05/08/19 07:30 WBC RBC Hgb Hct MCV MCH MCHC RDW Plt Count MPV Absolute Neuts (auto) Neutrophils % Lymphocytes % Monocytes % Eosinophils % Basophils % Nucleated RBC % PT with INR 13.50 H INR 1.14 H PTT (Actin FS) 32.0 Sodium Potassium Chloride Carbon Dioxide Anion Gap BUN Creatinine Est GFR (CKD-EPI)AfAm Est GFR (CKD-EPI)NonAf Random Glucose Lactic Acid Calcium Phosphorus Magnesium Total Bilirubin AST ALT Alkaline Phosphatase Total Protein Albumin Current Medications Generic Name Dose Route Start Last Admin Trade Name Freq PRN Reason Stop Dose Admin Fluoxetine HCl 40 mg 05/08/19 10:00 05/08/19 10:05 Prozac - PO 40 mg DAILY [facility] Administration Lactated Ringer's 1,000 ml in 1,000 mls @ 125 mls/hr 05/07/19 18:00 05/08/19 10:02 Lactated Ringers Solution IV 125 mls/hr ASDIR [facility] Administration Piperacillin Sod/Tazobactam 50 mls @ 100 mls/hr 05/07/19 19:15 Sod 3.375 gm/ Dextrose IVPB Q8H-IV [facility] Protocol Ceftriaxone Sodium 1 gm/ 50 mls @ 200 mls/hr 05/09/19 10:00 Dextrose IVPB DAILY [facility] Protocol Ketorolac Tromethamine 15 mg 05/07/19 17:30 05/08/19 10:01 Toradol Injection - IVPUSH 05/12/19 17:29 15 mg Q6H PRN Administration PAIN LEVEL 6-10 28 M h/o asthma, depression, obesity, admitted for a right ureteral obstructing stone and hydronephrosis s/p R nephrostomy tube for drainage. Sepsis secondary to right ureteral obstructing stone w/ R sided hydronephrosis CT: [id number] obstructing stone right UPJ--mild to moderate right renal hydronephrosis and stranding of perinephric fat CRE improving, pain improved Dr. Teresa, cont current management IV fluids , pain control and abx ID consult: Dr Bonner follow up cx (urine cx negative so far) and adjust abx accordingly Depression not in acute exacerbation continue Prozac Asthma, stable, albuterol PRN for SOB Obesity counseled on diet, exercise and weight loss Med Surg
[2019-05-09] MEDS: KETOROLAC TROMETHAMINE 15 MG/ML VIAL IVPUSH PRN ×2 (01:14→10:28)
--- NOTE | 2019-05-09 08:05 | PN ---
Progress Note (short form) - Note Progress Note: afebrile cultures neg some rt flank discomfort plan for KUB this am ok for discharge from standpoint outpt f/u for lithotripsy Problem List - Problems (1) Hydronephrosis with renal calculous obstruction Code(s): N13.2 - HYDRONEPHROSIS WITH RENAL AND URETERAL CALCULOUS OBSTRUCTION
[2019-05-09 09:12] LABS: BASO % 0.4 % (0-2.0); EOS % 2.1 % (0-4.5); HEMOGLOBIN 14.4 GM/dL (11.7-16.9); LYMPH % 19.9 % (8-40); MCH 30.8 pg (25.7-33.7); MEAN CELL VOLUME 85.6 fl (80-96); MEAN PLT VOLUME 8.2 fl (7.5-11.1); MONO % 7.2 % (3.8-10.2); NEUT % 70.4 % (42.8-82.8); PLATELET COUNT 197 K/MM3 (134-434); RBC 4.67 M/mm3 (4.00-5.60); RDW 12.8 % (11.9-15.9); WHITE BLOOD COUNT 10.1 K/mm3 (4.0-10.0)
[2019-05-09 09:34] LABS: ALBUMIN 3.8 g/dl (3.4-5.0); BILIRUBIN,TOTAL 1.5 mg/dL (0.2-1); CALCIUM 9.1 mg/dL (8.5-10.1); CREATININE 0.8 mg/dL (0.55-1.3); POTASSIUM 4.3 mmol/L (3.5-5.1); TOT PROT 6.5 g/dl (6.4-8.2)
[2019-05-09] MEDS ORDERED: CEFTRIAXONE 1 GM in DEXTROSE 5%-WATER - 50 ML IVPB SCH (10:00)
[2019-05-09] MEDS ORDERED: cefTRIAXone SODIUM 1 GM VIAL ONE (10:08)
[2019-05-09] MEDS ORDERED: DEXTROSE 5%-WATER - 50 ML IVPB ONE (10:08)
[2019-05-09] MEDS: FLUoxetine HCL 20 MG CAPSULE PO SCH (10:28)
[2019-05-09 14:50] VITALS: PULSE 86
[2019-05-09 16:11] VITALS: BP 128/78; TEMP 99.7
--- NOTE | 2019-05-09 16:19 | PN ---
Progress Note, Physician History of Present Illness: Pt is alert, without distress. Denies pain. Rt nephrostomy in place, minimal hematuria. Has no other complaints. States he feels well. - Current Medication List Current Medications: Active Medications Fluoxetine HCl (Prozac -) 40 mg PO DAILY [facility] Last Admin: 05/09/19 10:28 Dose: 40 mg Lactated Ringer's (Lactated Ringers Solution) 1,000 ml in 1,000 mls @ 125 mls/ hr IV ASDIR [facility] Last Admin: 05/08/19 18:57 Dose: 125 mls/hr Ketorolac Tromethamine (Toradol Injection -) 15 mg IVPUSH Q6H PRN PRN Reason: PAIN LEVEL 6-10 Stop: 05/12/19 17:29 Last Admin: 05/09/19 10:28 Dose: 15 mg - Objective Vital Signs: Vital Signs Temperature 99.7 F H 05/09/19 16:06 Pulse Rate 86 05/09/19 16:06 Respiratory Rate 22 H 05/09/19 16:06 Blood Pressure 128/78 05/09/19 16:06 O2 Sat by Pulse Oximetry (%) 97 05/09/19 11:00 Constitutional: Yes: No Distress, Calm Cardiovascular: Yes: Regular Rate and Rhythm Respiratory: Yes: Regular Gastrointestinal: Yes: Normal Bowel Sounds, Soft Genitourinary: Yes: Other (Rt nephrostomy - yellow urine, minimal hematuria) Integumentary: Yes: WNL Neurological: Yes: Alert, Oriented Labs: CBC, BMP 05/09/19 08:00 05/09/19 08:00 INR, PTT INR 1.14 (0.83-1.09) H 05/08/19 07:30 Microbiology 05/07/19 17:22 Blood - Peripheral Venous Blood Culture - Preliminary NO GROWTH OBTAINED AFTER 24 HOURS, INCUBATION TO CONTINUE FOR 4 DAYS. 05/07/19 17:00 Blood - Peripheral Venous Blood Culture - Preliminary NO GROWTH OBTAINED AFTER 24 HOURS, INCUBATION TO CONTINUE FOR 4 DAYS. 05/07/19 12:05 Urine - Urine Clean Catch Urine Culture - Final NO GROWTH OBTAINED Problem List - Problems (1) Hydronephrosis with renal calculous obstruction Code(s): N13.2 - HYDRONEPHROSIS WITH RENAL AND URETERAL CALCULOUS OBSTRUCTION Assessment/Plan Rt obstructive ureteral stone/hydronephrosis s/p perc nephrostomy -- pt is alert, without distress, hematuria in drain resolving -- U/A, Urine cx no growth -- blood cultures neg 24h -- will d/c antibiotics -- to f/u with as outpt -- Pt instructed to return if develops fever/return of pain
--- NOTE | 2019-05-09 17:04 | DS ---
Physical Exam: SUBJECTIVE: Patient seen and examined at bedside this morning. No acute events overnight. Patient mild right flank pain, but otherwise denies any fever,chills , headache, dizziness, chest pain, SOb, abdominal pain, diarrhea, urinary symptoms. OBJECTIVE: Vital Signs Temperature 99.7 F H 05/09/19 16:06 Pulse Rate 86 05/09/19 16:06 Respiratory Rate 22 H 05/09/19 16:06 Blood Pressure 128/78 05/09/19 16:06 O2 Sat by Pulse Oximetry (%) 97 05/09/19 11:00 PHYSICAL EXAM GENERAL: The patient is awake, alert, and fully oriented, in no acute distress. HEAD: Normal with no signs of trauma. EYES: PERRLA, EOMI, sclera anicteric, conjunctiva clear. ENT: moist mucous membranes. NECK: Trachea midline, full range of motion, supple. LUNGS: Breath sounds equal, clear to auscultation bilaterally. HEART: Regular rate and rhythm, S1, S2 without murmur, rub or gallop. ABDOMEN: Soft, nontender, nondistended, normoactive bowel sounds. BACK: Right nephrostomy tube in place, draining light red urine EXTREMITIES: 2+ pulses, warm, well-perfused, no edema. NEUROLOGICAL: Cranial nerves II through XII grossly intact. Normal speech, gait not observed. PSYCH: Normal mood, normal affect. SKIN: Warm, dry, normal turgor. LABS Laboratory Results - last 24 hr 05/09/19 05/09/19 08:00 08:00 WBC 10.1 H RBC 4.67 Hgb 14.4 Hct 40.0 MCV 85.6 MCH 30.8 MCHC 36.0 H RDW 12.8 Plt Count 197 MPV 8.2 Absolute Neuts (auto) 7.1 Neutrophils % 70.4 Lymphocytes % 19.9 D Monocytes % 7.2 Eosinophils % 2.1 D Basophils % 0.4 Nucleated RBC % 0 Sodium 140 Potassium 4.3 Chloride 108 H Carbon Dioxide 26 Anion Gap 7 L BUN 10.0 Creatinine 0.8 Est GFR (CKD-EPI)AfAm 139.91 Est GFR (CKD-EPI)NonAf 120.72 Random Glucose 84 Calcium 9.1 Total Bilirubin 1.5 H AST 29 ALT 102 H Alkaline Phosphatase 44 L Total Protein 6.5 Albumin 3.8 HOSPITAL COURSE: Date of Admission:05/07/19 Date of Discharge: 05/09/19 Patient is a 28 yo male with past medical history of asthma, depression, obesity , admitted for a right ureteral obstructing stone and hydronephrosis. Urology was consulted. A Right nephrostomy tube was placed. He was given IV fluids and pain medications. Urine and blood cultures are negative. Patient continued to improved the rest of his hospital stay. He was discharged with the nephrostomy tube with instructions to follow up with PCP and urology for outpatient lithotripsy. Minutes to complete discharge: 35 Discharge Summary Problems reviewed: Yes Reason For Visit: CALCULUS OF KIDNEY Current Active Problems Hydronephrosis with renal calculous obstruction (Acute) Condition: Improved - Instructions Diet, Activity, Other Instructions: Your visit You were admitted to the hospital because you had back pain. You were found to have a kidney stone. You were seen by surgery and recommended outpatient follow up for further management of the kidney stone. A tube was placed in your right kidney. You will be sent home with the tube so it is important to follow the instructions for care of the nephrostomy tube to prevent infection: -Keep the skin around the tube clean and dry at all times. -Do not allow the bag to drag on the floor -If there is leak on the bag, it is important that you go to the ED immediately as the bag needs to be changed. Medications You may take Tylenol or Ibuprofen as needed for pain. Follow up Please follow up with your primary care doctor within 1 week. Please follow up with the urologist (Dr. Valentino) within 1 week. Additional info Please call 911 or go to the Ed if with any worsening fever, chills, headache, chest pain, shortness of breath, abdominal pain, urinary symptoms or any new concerns noted. Referrals: [facility] [place] [Provider Group] Aryan Valentino MD [Staff Physician] - Disposition: HOME - Home Medications Comprehensive Discharge Medication List: Ambulatory Orders Fluoxetine HCl [Prozac] 40 mg PO DAILY 05/07/19 This patient is new to me today: Yes Date on this admission: 05/09/19 Emergency Visit: Yes ED Registration Date: 05/07/19 Care time: The patient presented to the Emergency Department on the above date and was hospitalized for further evaluation of their emergent condition. Critical Care patient: No - Discharge Referral Referred to [facility] No ATTENDING PHYSICIAN STATEMENT I saw and evaluated the patient. I reviewed the resident's note and discussed the case with the resident. I agree with the resident's findings and plan as documented. SUBJECTIVE: OBJECTIVE: ASSESSMENT AND PLAN:
--- NOTE | 2019-05-09 17:07 | PN ---
Teaching Attending Note Name of Resident: Maryam Oliveira ATTENDING PHYSICIAN STATEMENT I saw and evaluated the patient. I reviewed the resident's note and discussed the case with the resident. I agree with the resident's findings and plan as documented. SUBJECTIVE:asymptomatic. no dyusria, hematuria, CP, SOB, fever, chills. tolerating diet OBJECTIVE: Last Vital Signs Temp Pulse Resp BP Pulse Ox 99.7 F H 86 22 H 128/78 97 05/09/19 16:06 05/09/19 16:06 05/09/19 16:06 05/09/19 16:05/09/19 11:00 General NAD CV S1 S2 RRR no murmur/rub/gallop Lungs CTA B/L no wheezing/rales/rhonchi Abdomen soft NT/ND +R PNT draining urine ASSESSMENT AND PLAN: 28yo M with PMH asthma, depression, obesity admitted with R sided obstructive uropathy with hydronephrosis 1. Obstructive uropathy- 2/2 obstructing stones s/p R PNT draining well. was on empiric abx. stone does not appear infected. spoke with ID and agree abx no longer necessary. will need to f/u with Urology as outpatient for lithotripsy and eventual PNT removal. d/c home. counselled on importance of follow up
== END 2019-05-09 18:24 | disposition home or self-care (01) | DRG 443 ==
LOC: FER 11:35 → J8W 21:16
PROVIDERS: ADMIT Urology; ATTEND Internal Medicine
PROC: 0T9030Z Drainage of Right Kidney with Drainage Device, Percutaneous Approach (ICD-10-PCS; principal; 2019-05-07)
DX: N13.2 Hydronephrosis with renal and ureteral calculous obstruction (principal); J45.909 Unspecified asthma, uncomplicated; D72.829 Elevated white blood cell count, unspecified; F32.9 Major depressive disorder, single episode, unspecified; R31.9 Hematuria, unspecified; E66.9 Obesity, unspecified; Z68.31 Body mass index [BMI] 31.0-31.9, adult
CPT/HCPCS: 36415; 50432; 74018-TC-FY; 74176-TC; 80053; 81003; 81015; 83605; 83735; 84100; 85025; 85610; 85730; 87040; 87086; 87899; 99285-25; A4358; C1729; C1769; J0131; J7030